=== PATIENT | female | born 1950 | race Caucasian/White ===

== ENCOUNTER → 2016-05-29 | Outpatient (CLI) | payer OTHER | LOC: BMCIMAGING 12:03 | PROVIDERS: ATTEND Family Medicine | DX: Z03.89 Encounter for observation for other suspected diseases and conditions ruled out (principal) | CPT/HCPCS: G0204 ==

== ENCOUNTER → 2016-10-03 | Outpatient (CLI) | payer OTHER | LOC: BMCIMAGING 14:44 | PROVIDERS: ATTEND Family Medicine | DX: Z13.820 Encounter for screening for osteoporosis (principal); M85.80 Other specified disorders of bone density and structure, unspecified site ==

== ENCOUNTER → 2016-11-27 | Outpatient (CLI) | payer OTHER | LOC: BMCIMAGING 09:34 | PROVIDERS: ATTEND Family Medicine | DX: R92.8 Other abnormal and inconclusive findings on diagnostic imaging of breast (principal) | CPT/HCPCS: G0206 ==

== ENCOUNTER → 2017-05-11 | Outpatient (CLI) | payer OTHER | LOC: BMCIMAGING 09:49 | PROVIDERS: ATTEND Family Medicine | DX: R92.8 Other abnormal and inconclusive findings on diagnostic imaging of breast (principal) ==

== ENCOUNTER 2017-07-12 13:14 | Emergency (ER) | payer OTHER ==
--- NOTE | 2017-07-12 13:58 | EDPHY ---
H & P Stated Complaint: Ringing in ears x 1 month, feeling depressed, "ran out of steam" Time Seen by Provider: 07/12/17 13:41 HPI/ROS: CHIEF COMPLAINT: Anxiety and depression worsening, chronic tinnitus HISTORY OF PRESENT ILLNESS: The patient presents to the ED with symptoms primarily surrounding worsening anxiety and depression of newly diagnosed chronic tinnitus. The patient has been taking Paxil, Valium and Xanax in addition to amitriptyline for management of her symptoms. She states that these medications do not seem to be helping her depression and fact are making them worse. She has had fleeting suicidal thoughts without a specific plan. The patient is somewhat preoccupied with the fact that she may have a serious [employer] tumor causing her symptoms. She is accompanied by her supportive . They presents to the ED today primarily seeking some assurance that she does not have a brain tumor. REVIEW OF SYSTEMS: A comprehensive 10 point review of systems is otherwise negative aside from elements mentioned in the history of present illness. Source: Patient - Personal History Tetanus Vaccine Date: 2009 - Medical/Surgical History Hx Asthma: No Hx Chronic Respiratory Disease: No Hx Diabetes: No Hx Cardiac Disease: No Hx Renal Disease: No Hx Cirrhosis: No Hx Alcoholism: No Hx HIV/AIDS: No Hx Splenectomy or Spleen Trauma: No - Social History Smoking Status: Never smoked - Physical Exam Exam: General Appearance: Alert, tearful Eyes: Pupils equal and round no pallor or injection ENT, Mouth: Mucous membranes moist Respiratory: There are no retractions, lungs are clear to auscultation Cardiovascular: Regular rate and rhythm Gastrointestinal: Abdomen is soft and nontender, no masses, bowel sounds normal Neurological: A&O, normal motor function, normal sensory exam, normal cranial nerves Skin: Warm and dry, no rashes Musculoskeletal: Neck is supple nontender Extremities: symmetrical, full range of motion Constitutional: Initial Vital Signs Temperature (C) 37.0 C 07/12/17 13:22 Heart Rate 88 07/12/17 13:22 Respiratory Rate 16 07/12/17 13:22 Blood Pressure 149/89 H 07/12/17 13:22 O2 Sat (%) 98 07/12/17 13:22 O2 Delivery Mode Room Air Allergies/Adverse Reactions: codeine [Codeine] Allergy (Intermediate, Verified 07/07/13 11:10) Swelling/neck,face,throat ibuprofen Allergy (Verified 07/12/17 13:21) milk Allergy (Verified 07/07/13 11:11) Abdominal Pain Home Medications: Medication Instructions Recorded PARoxetine HCL [Paxil 20mg (RX)] 20 mg PO DAILY 01/11/12 Amitriptyline HCl 07/12/17 Diazepam 07/12/17 Medical Decision Making - Diagnostics Imaging Results: Imaging Impressions Brain MRI 07/12/17 13:56 Impression: Normal MRI of the brain without contrast. Results called to Erick Murguia PA-C, at 3:15 PM. ED Course/Re-evaluation: The patient presents the ED with several issues. First, she is requesting neuroimaging for evaluation of her subacute tinnitis. An MRI was obtained and found to be normal. The patient was given some Ativan for anxiety. She has been having worsening symptoms of depression and anxiety. She is having fleeting suicidal thoughts without a specific plan. The patient does contract for safety. The patient's is comfortable with her following up as an outpatient with psychiatry. I do not feel that she meets criteria for 72 hr mental health hold. The patient will be given outpatient psychiatric resources. She is advised to return to the ED for any worsening symptoms or should she feel unsafe. The patient will be advised to follow up with her regular physician Dr. Holbrook. Differential Diagnosis: Differential diagnosis considered includes tinnitis, [employer] tumor, depression, anxiety, suicidal ideation - Data Points Medications Given: Discontinued Medications Lorazepam (Ativan) 1 mg PO EDNOW ONE Stop: 07/12/17 14:00 Last Admin: 07/12/17 14:03 Dose: 1 mg Departure - Departure Disposition: Home, Routine, Self-Care Clinical Impression: Tinnitus, Anxiety Condition: Good Instructions: Tinnitus (ED) Additional Instructions: 1. I recommend contacting the outpatient psychiatric department at [phone] to establish an appointment. 2. Please schedule a follow-up appointment with your primary care provider. 3. Your brain MRI demonstrates no evidence of a brain tumor or other worrisome abnormality. 4. Please return to the ED for worsening depression or suicidal thoughts.
[2017-07-12] MEDS ORDERED: LORazepam 1 MG TAB PO ONE (13:59)
[2017-07-12 15:34] VITALS: BP 151/77
== END 2017-07-12 15:55 | disposition home or self-care (01) ==
DX: F41.9 Anxiety disorder, unspecified (principal); H93.19 Tinnitus, unspecified ear

== ENCOUNTER → 2018-05-16 | Outpatient (CLI) | payer OTHER | LOC: BMCIMAGING 09:06 | PROVIDERS: ATTEND Family Medicine | DX: Z12.31 Encounter for screening mammogram for malignant neoplasm of breast (principal); Z80.3 Family history of malignant neoplasm of breast ==